=== PATIENT | male | born 1990 | race Caucasian/White ===

== ENCOUNTER 2016-09-13 22:10 | Emergency (ER) | payer OTHER ==
[~2016-09-13] VITALS: Ht 188 cm; Wt 101.6 kg
[2016-09-13 22:15] VITALS: TEMP 36.9; Ht 188 cm; Wt 101.6 kg
[2016-09-13] MEDS ORDERED: LIDOCAINE/EPINEPH/TETRACAINE 1 EA SYR EXT STA (22:33)
[2016-09-13] MEDS ORDERED: ASPI81TA28 PO (22:36)
[2016-09-14 00:12] VITALS: BP 131/81; PULSE 78; O2SAT 96
--- NOTE | 2016-09-14 02:29 | EMERGENCY ROOM VISIT NOTE ---
History First contact with patient: 22:29 Chief Complaint: LACERATION/CUT (NON-SUTURE) Stated Complaint: LACERATION ON FACE Nursing Triage Summary: laceration to the left cheek after fall on the ice History of Present Illness The patient is a 25 year old male who presents to the Emergency Room with complaints of fall outside on the ice with laceration to left cheek. No alcohol or drugs tonight. Patient denies loss of consciousness or headache. Patient denies loss of conscious, facial pain, dental pain, neck pain, vision problems, chest pain, dyspnea, abdominal pain, back pain or any other medical complaints. Tetanus is current. Review of Systems See HPI for pertinent positives & negatives. A total of 10 systems reviewed and were otherwise negative. Past Medical/Surgical History Medical Problems: (1) Alcohol intoxication (2) Closed head injury Family History Patient reports no known family medical history. Social History Smoking Status: Never Smoker Alcohol Use: occasionally Housing Status: lives with family Occupation Status: employed Current/Historical Medications Scheduled Aspirin (Aspirin Ec), 81 MG PO DAILY Allergies Coded Allergies: No Known Allergies (Verified , `, 02/23/14) Physical Exam Vital Signs Date Time Temp Pulse Resp B/P Pulse Ox O2 Delivery O2 Flow Rate FiO2 09/14/16 00:12 78 18 131/81 96 09/13/16 23:01 66 18 150/79 96 Room Air 09/13/16 22:15 36.9 68 20 159/82 96 Room Air Pain Rating (0-10): 3.0 Physical Exam VITALS: Vitals are noted on the nurse's note and reviewed by myself. Vital signs stable. GENERAL: Pleasant male, in no acute distress, nondiaphoretic, well-developed well-nourished. SKIN: 3 cm left cheek laceration The rest of the skin was without rashes, erythema, edema, or bruising. There is no tenting of the skin. Capillary reflex less than 2 seconds. HEAD: Normocephalic Face: NTTP EARS: External auditory canals clear, tympanic membranes pearly morley without erythema or effusion bilaterally. EYES: Pupils equal round and reactive to light and accommodation. Conjunctivae without injection, sclerae without icterus. Extraocular movements intact. NOSE: Patent, turbinates without inflammation or discharge. No sinus tenderness. MOUTH: Mucous membranes moist. Tonsils are not enlarged. Pharynx without erythema or exudate. Uvula midline. Airway patent. Tongue does not deviate. NECK: Supple without nuchal rigidity. No lymphadenopathy. No thyromegaly. Cervical spine is nontender. No JVD. HEART: Regular rate and rhythm without murmurs gallops or rubs. LUNGS: Clear to auscultation bilaterally without wheezes, rales or rhonchi. No dullness to percussion. No retractions or accessory muscle use. ABDOMEN: Positive bowel sounds x 4. Normal tympanic percussion. Soft, nontender, without masses or organomegaly. Jhaveri sign negative. No guarding or rebound tenderness. MUSCULOSKELETAL: No muscle atrophy, erythema, or edema noted. NEURO: Patient was alert and oriented to person place and time. Normal sensation to light and sharp touch. No focal neurological deficits. Cranial nerves II through XII grossly intact. No pronator drift. Cerebellar exam intact. Medical Decision & Procedures Medications Administered Medications (Trade) Dose Ordered Sig/Yasmine Route Start Time Stop Time Status Last Admin Dose Admin Tetracaine/ Epinephrine/ Lidocaine (L.e.t. Gel 4%/ 1:100/0.5%) 1 ea NOW STAT EXT 09/13/16 22:33 09/13/16 22:35 DC 09/13/16 22:58 1 EA Procedure Location: iface Total length: 3cm Complexity: simple Verbal consent was obtained after the risks and benefits were explained, including but not limited to bleeding, scarring, infection, pain, and bone/joint /nerve damage. At this time, the risks of the procedure are less than the risks of NOT performing the procedure. A time out was taken and the correct patient and site identified. The skin was prepped with betadine. The target area was anesthetized with LET. Copious irrigation was performed using NSS. The skin was re-prepped with betadine and a sterile field set. The wound was explored for foreign bodies and none found. Examination revealed no injury to deep structures such as tendons, bone, or significant blood vessels. Debridement was not performed. The wound edges were approximated using 6, 6-0 simple interrupted nylon sutures. Hemostasis and excellent approximation was achieved. Antibacterial ointment and a sterile dressing applied. Detailed wound care instructions and signs and symptoms of infection reviewed with the pt. No complications and the patient tolerated the procedure well. ED Course Prior records/ancillary studies reviewed. Triage Nursing notes reviewed. Additional history obtained from friend. The patient's history was concerning for traumatic head injury Differential diagnosis: Etiologies such as concussion, contusion, fracture, subdural hematoma, epidural hematoma, intraparenchymal hemorrhage, as well as other traumatic pathologies were entertained. Physical examination findings: As above. ER treatment provided: Laceration repaired as above On reassessment the patient felt better. Diagnostics interpreted by me: It appears the patient has a facial laceration with mild head injury. I discussed the risks and the benefits of CT scanning. Clinically the patient is doing well and does not appear to have a significant underlying injury. The pt felt comfortable with conservative observation with the understanding if the clinical picture change that imaging may be necessary at a later time. I gave my usual and customary discussion regarding this issue. Patient was neurovascularly and neurologically intact. He was well-appearing. No alcohol or drugs on board. He was counseled on head injury signs and symptoms and laceration care. He was advised to return to the ER immediately for headache, fevers, confusion, worsening signs or symptoms or as needed. By the evaluation outlined above emergent etiologies such as fracture, subdural hematoma, epidural hematoma, intraparenchymal hemorrhage, as well as others were deemed relatively unlikely. The pt informed about the findings as listed above. All questions were answered and pleased with the treatment. Return instructions were outlined and the patient was discharged in stable condition. Referral: The patient was referred back to their primary care physician for follow-up in 2 to 3 days for a recheck of the current condition. Medical Decision as above Impression Primary Impression: Facial laceration Additional Impressions: Closed head injury Fall Departure Information Dispostion Home / Self-Care Condition FAIR Forms WORK / SCHOOL INSTRUCTIONS, HOME CARE DOCUMENTATION FORM, IMPORTANT VISIT INFORMATION Patient Instructions A Signature Page, My [facility], ED Head Injury Closed, ED Laceration All Additional Instructions Keep wound clean and dry. Do not allow any crusting or dried blood to accumulate on sutures. If this occurs, use a 1:1 solution of hydrogen peroxide/ water on a Q-tip to clean the wound. Use an antibiotic ointment for 3-4 days, then let wound dry. Suture removal in 5-7 days. Return sooner for any signs of infection (increasing redness, swelling, drainage). Ice and elevate for swelling and pain. Keep covered when in sun until sutures removed then SPF 50 or higher for one year. Vitamin E oil if desired two weeks after suture removal for reduction of scar. Read head injury handout and return for any symptoms. Tylenol 1000 mg as needed for pain (Maximum 3000 mg Tylenol in 24 hr period). Avoid alcohol and contact sports/activities for one week and follow up with family doctor prior to returning to these activities if still symptomatic. Ice and elevate head. Return to ER sooner for headache, fevers, confusion, lethargy, worsening signs or symptoms or as needed. Problem Qualifiers Additional Impressions: Closed head injury Encounter type: initial encounter Qualified Codes: S09.90XA - Unspecified injury of head, initial encounter
== END 2016-09-14 00:12 | disposition home or self-care (01) ==
LOC: C.EDB 22:11
DX: S01.402A Unspecified open wound of left cheek and temporomandibular area, initial encounter (principal); S09.90XA Unspecified injury of head, initial encounter; Z79.82 Long term (current) use of aspirin; W00.0XXA Fall on same level due to ice and snow, initial encounter; Y93.89 Activity, other specified; Y92.89 Other specified places as the place of occurrence of the external cause; Y99.8 Other external cause status

== ENCOUNTER 2017-05-21 03:35 | Emergency (ER) | payer OTHER ==
[~2017-05-21] VITALS: Ht 188 cm; Wt 103.8 kg
[~2017-05-21 03:35] MED LIST: ASPI81TA28 PO
[2017-05-21 03:44] VITALS: TEMP 36.6; Ht 188 cm; Wt 103.8 kg
--- NOTE | 2017-05-21 03:48 | EMERGENCY ROOM VISIT NOTE ---
History Report prepared by Chon: Rick Ashley Under the Supervision of: Dr. Fam Boykin M.D. First contact with patient: 03:36 Chief Complaint: ALCOHOL OVERDOSE Stated Complaint: ALCOHOL History of Present Illness The patient is a 26 year old male who presents to the Emergency Room via EMS for a persistent alcohol intoxication that started prior to arrival. Per EMS, the patient was found sleeping on a bench at [employer], and was initially combative but is now cooperative. The patient admits to alcohol use. He also admits to periodic marijuana use, but not tonight however. He has a history of a traumatic brain injury, but denies any recent injuries. He denies any vomiting. History limited secondary to patient's intoxication. Source of History: patient, EMS History Limited By: intoxication Onset: Prior to arrival Position: other (global - alcohol intoxication) Quality: other (found sleeping on bench at [employer]) Timing: other (persistent) Associated Symptoms: No vomiting Note: Associated symptoms: Initially combative. Review of Systems Review of systems is unobtainable due to alcohol intoxication. Past Medical & Surgical Medical Problems: (1) Alcohol intoxication (2) Closed head injury Family History Patient reports no known family medical history. Social History Smoking Status: Never Smoker Alcohol Use: occasionally Housing Status: lives with family Occupation Status: employed Current/Historical Medications No Active Prescriptions or Reported Meds Allergies Coded Allergies: No Known Allergies (Verified , `, 02/23/14) Physical Exam Vital Signs Date Time Temp Pulse Resp B/P (MAP) Pulse Ox O2 Delivery O2 Flow Rate FiO2 05/21/17 05:00 71 16 159/61 99 Room Air 05/21/17 04:10 91 05/21/17 04:07 81 20 146/56 96 Room Air 05/21/17 03:44 36.6 94 20 163/79 99 Room Air Physical Exam GENERAL: Patient is moderately intoxicated with slurred speech. Smells of alcohol. Well appearing and in no acute distress. HEAD: No evidence of Trauma. AT/NC EYES: Injected conjunctiva. Normal EOM. Pupils equal/reactive. ENT: Mucous membranes moist, no nasal congestion, . NECK: No step-offs, no adenopathy, no meningismus, trachea is midline. LUNGS: No dyspnea. Clear to auscultation and equal bilaterally. No wheeze, no rhonchi. HEART: Regular rate and rhythm. No murmurs, rubs, gallops appreciated. ABDOMEN: Soft, nontender, bowel sounds positive, no masses appreciated, no peritonitis. BACK: No midline tenderness, no CVA tenderness EXTREMITIES: Normal motion all extremities, no cyanosis, no edema. NEUROLOGIC: Intoxicated. Alert, oriented. No acute motor or sensory deficits, no focal weakness, cranial nerves grossly intact. SKIN: No rash, no jaundice, no diaphoresis. Medical Decision & Procedures Laboratory Results 05/21/17 03:59 Test 05/21/17 03:59 Anion Gap 2.0 mmol/L (3-11) Est Creatinine Clear Calc Drug Dose 133.1 ml/min Estimated GFR () 108.3 Estimated GFR (Non- 93.5 BUN/Creatinine Ratio 14.0 (10-20) Calcium Level 8.5 mg/dl (8.5-10.1) Ethyl Alcohol mg/dL 113.0 mg/dl (0-3) Laboratory results as reviewed by me. ED Course 0337: The patient was evaluated in room B12A. A limited history and physical exam was performed. 0459: I reevaluated the patient and he is awake, alert, and oriented. He is going home with a friend. The patient verbally expressed understanding and agreement of the treatment plan. The patient will be discharged. Medical Decision Differential: Alcohol Intoxication, Drug Intoxication, Electrolyte Abnormality, Trauma, Intracranial Event, Toxicological, Excited Delirium, Serotonin Syndrome , amongst other pathologies entertained. 26 yr old intoxicated male brought in by EMS after being found intoxicated at local [employer]. Patient with no evidence nor history for trauma. Protecting airway and breathing comfortably throughout ED stay. EtOH positive. Monitored and discharged when awake, alert, oriented and denies any complaints. Medication Reconcilliation Current Medication List: was personally reviewed by me Blood Pressure Screening Patient's blood pressure: Elevated blood pressure Blood pressure disposition: Elevated BP felt to be situational Impression Primary Impression: Alcohol use with intoxication Scribe Attestation The scribe's documentation has been prepared under my direction and personally reviewed by me in its entirety. I confirm that the note above accurately reflects all work, treatment, procedures, and medical decision making performed by me. Departure Information Dispostion Home / Self-Care Prescriptions No Active Prescriptions or Reported Meds Referrals Sudhakar Ortiz M.D. (PCP) Patient Instructions Alcohol Intoxication - [facility], My [facility]
[2017-05-21 04:35] LABS: CALCIUM 8.5 mg/dl (8.5-10.1); CREATININE 1.1 mg/dl (0.60-1.40); POTASSIUM 4.1 mmol/L (3.5-5.1)
[2017-05-21 05:00] VITALS: BP 159/61; PULSE 71; O2SAT 99
== END 2017-05-21 05:29 | disposition home or self-care (01) ==
LOC: EDBD 03:35 → C.EDB 03:35
DX: F10.129 Alcohol abuse with intoxication, unspecified (principal)

== ENCOUNTER 2025-08-14 18:51 | Inpatient (IN) ==
[2025-08-14 19:20] LABS: Hematocrit (blood only) 43.3 % (42.0-52.0); Hemoglobin 15.0 g/dL (14.0-18.0); Immature Granulocytes # (auto) 0.04 K/uL (0.01-0.20); Immature Granulocytes % (auto) 0.3 %; Mean Corpuscular Hemoglobin 30.0 pg (25.0-34.0); Mean Corpuscular Volume 86.6 fL (80.0-100.0); Platelet Count 207 K/uL (130-400); RDW Standard Deviation 39.3 fL (36.4-46.3); Red Blood Count 5.00 M/uL (4.70-6.10); White Blood Count 14.01 K/ul (4.8-10.8)
[2025-08-14] MEDS: KETOROLAC TROMETHAMINE 15 MG/ML VIAL IV ONE (19:31)
[2025-08-14 19:43] LABS: Alanine Aminotransferase 14.0 U/L (7-52); Albumin Globulin Ratio 1.0 (0.9-2); Albumin Level 3.8 gm/dl (3.4-5.0); Alkaline Phosphatase 55.0 U/L (34-104); Anion Gap 6.0 (3-11); Bilirubin,Total 0.7 mg/dl (0.2-1.0); Blood Urea Nitrogen 20.0 mg/dl (6-23); Calcium 9.2 mg/dl (8.6-10.3); Carbon Dioxide 29.0 mmol/L (21-32); Chloride 103.0 mmol/L (98-107); Creatinine Clr Calc Pharmacy 116.0 ml/min; Globulin 3.7 gm/dl (2.5-4.0); Glucose 97.0 mg/dl (70-99(Fasting)); Potassium 3.8 mmol/L (3.5-5.1); Sodium 138.0 mmol/L (136-145); Total Protein 7.5 gm/dl (6.0-8.3)
--- NOTE | 2025-08-14 19:44 | XRay Report ---
Chest radiograph, one view History: Chest pain Comparison: 08/12/2025 Findings: Single AP view of the chest performed. No pneumothorax. Enlargement of the cardiac silhouette, likely related to previously seen pericardial effusion. Small left pleural effusion. Median sternotomy wires. Normal pulmonary vascularity. No evidence for lymphadenopathy. No visualized bony or soft tissue abnormality. Impression: Continue small left pleural effusion Electronically signed by Mo Street 08-14-2025 7:44 PM
[2025-08-14 19:49] LABS: INR 1.1 (0.9-1.1); Partial Thromboplastin Time 27 Seconds (21-31); Prothrombin Time 11.1 Seconds (9.0-12.0)
--- NOTE | 2025-08-14 19:57 | Emergency Department Note ---
History of Present Illness General Chief complaint: Chest Pain Stated complaint: CHEST PAIN Time Seen by Provider: 08/14/25 19:14 Source: patient Mode of arrival: ambulatory Limitations: no limitations History of Present Illness Maximum Pain Intensity: 7 Patient is a 34-year-old male with history of prior pericarditis and recently diagnosed pericardial effusion who presents for worsening pleuritic chest pain. Worse when lying down. Describes sharp pain to the midsternal region that comes in waves. He was seen 2 days prior and diagnosed with a small to moderate left pleural effusion on CT. He was discharged after a dose of IV Solu-Medrol and Toradol. He says his pain has not improved since then. 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 Patient denies any lightheadedness, dizziness, palpitations, nausea, vomiting, lower extremity swelling or pain. Home Medications Medication Instructions Recorded Confirmed Type aspirin 81 mg chewable tablet 81 mg PO QAM 10/12/23 08/12/25 History losartan 25 mg tablet 25 mg PO QAM 05/28/25 08/12/25 History montelukast 10 mg tablet 10 mg PO QAM 05/28/25 08/12/25 History fexofenadine 60 mg tablet 60 mg PO QAM 07/03/25 08/12/25 History vit C-vit E-Se-ginkgo biloba 60 1 tab PO BID 07/03/25 08/12/25 History mg-30 unit-70 mcg-40 mg tablet colchicine 0.6 mg tablet 0.6 mg PO BID #60 tabs 07/04/25 08/12/25 Rx propranolol 10 mg tablet 10 mg PO BID #60 tabs 07/04/25 08/12/25 Rx pantoprazole 40 mg tablet,delayed 40 mg PO QAM PRN Other 08/12/25 08/12/25 History release Allergies Allergy/AdvReac Type Severity Reaction Status Date / Time No Known Allergies Allergy Unknown ` Verified 08/12/25 18:21 Past Med/Surg History Problem List (Updated 08/12/25 @ 19:55 by Luis Manuel Medrano MD) Pericarditis (Acute) Acute pericardial effusion (Acute) Pericardial effusion (Acute) Pericarditis (Acute) Chest pain (Acute) Syncope (Acute) Pulmonary HTN Severe mitral regurgitation Mitral valve posterior leaflet prolapse Severe mitral valve regurgitation Medical History Closed traumatic brain injury Surgical History History of inferior vena caval filter placement Hx of tonsillectomy Family History Mother Cancer Father Hemochromatosis Social History Smoking Status: Never smoker Tobacco Type: E-cigarettes / Vaping Hx Alcohol Use: No Hx Substance Use: No Preferred Language: Italian Communication Ability: Effective University Internship Required: No Beliefs That Will Affect Care: None marital status: Single Current Living Situation: Alone current occupational status: employed Feels Safe at Home: Yes Assistive Devices: None Review of Systems Review of systems negative outside of positive findings mentioned in HPI. Physical Exam Vital Signs Vital Signs - 24 hr 08/14/25 18:56 08/14/25 19:23 08/14/25 20:02 Temperature 36.6 C Temperature Source Temporal Artery Scan Pulse Rate 91 H 86 Pulse Rate [Apical] 83 Pulse Rhythm [Apical] Regular Pulse Strength [Apical] Normal Respiratory Rate 16 16 Respiratory Effort / Characteristics Non-Labored Spontaneous Non-Labored Spontaneous Respiratory Depth Normal Normal Respiratory Pattern Regular Regular Blood Pressure 118/76 Blood Pressure [Left Arm] 112/61 Blood Pressure Mean 90 Blood Pressure Mean [Left Arm] 78 Pulse Oximetry 94 95 Oxygen Delivery Method Room Air Room Air Sepsis Recent Fever Within 48 Hours No Sepsis New/Unexplained Change in Mental Status No Sepsis Action Taken by Nursing No Action Required See below Constitutional WD/WN, vitals as above Respiratory normal respiratory effort, lungs clear to auscultation Cardiovascular RRR, no murmur, no edema Extremities: no calf tenderness, no pedal edema and no edema Course Administered Medications Discontinued Medications Ketorolac Tromethamine (Ketorolac Tromethamine 15 Mg/Ml Vial) 15 mg IV NOW ONE Stop: 08/14/25 19:24 Last Admin: 08/14/25 19:31 Dose: 15 mg Documented By: abl Methylprednisolone (Methylprednisolone 125 Mg/2 Ml Vial) 125 mg IV NOW STA Stop: 08/14/25 19:24 Last Admin: 08/14/25 19:31 Dose: 125 mg Documented By: abl Medical Decision Making Laboratory Data 08/14/25 19:05 08/14/25 19:05 Lab Results 08/14/25 Range/Units 19:05 WBC 14.01 H (4.8-10.8) K/ul RBC 5.00 (4.70-6.10) M/uL Hgb 15.0 (14.0-18.0) g/dL Hct 43.3 (42.0-52.0) % MCV 86.6 (80.0-100.0) fL MCH 30.0 (25.0-34.0) pg MCHC 34.6 (32.0-36.0) g/dL RDW Std Deviation 39.3 (36.4-46.3) fL RDW Coeff of Jovan 12.4 (11.5-14.5) % Plt Count 207 (130-400) K/uL MPV 11.2 (9.4-12.4) fL Immature Gran % (Auto) 0.3 % Neut % (Auto) 72.8 % Lymph % (Auto) 11.8 % [place] % (Auto) 13.3 % Eos % (Auto) 1.3 % Baso % (Auto) 0.5 % Neut # (Auto) 10.20 H (1.40-6.50) K/uL Lymph # (Auto) 1.65 (1.20-3.40) K/uL [place] # (Auto) 1.87 H (0.11-0.59) K/uL Eos # (Auto) 0.18 (0.00-0.50) K/uL Baso # (Auto) 0.07 (0.00-0.20) K/uL Immature Gran # (Auto) 0.04 (0.01-0.20) K/uL ESR 20 H (0-15) mm/hr PT 11.1 (9.0-12.0) Seconds INR 1.1 (0.9-1.1) APTT 27 (21-31) Seconds PTT Ratio 1.0 Sodium 138 (136-145) mmol/L Potassium 3.8 (3.5-5.1) mmol/L Chloride 103 (98-107) mmol/L Carbon Dioxide 29 (21-32) mmol/L Anion Gap 6 (3-11) BUN 20 (6-23) mg/dl Creatinine 1.26 (0.6-1.4) mg/dl Est Cr Clr Drug Dosing 116.0 ml/min eGFR 77.72 BUN/Creatinine Ratio 15.9 (10-20) Glucose 97 (70-99(Fasting)) mg/dl Calcium 9.2 (8.6-10.3) mg/dl Total Bilirubin 0.7 (0.2-1.0) mg/dl AST 15 (13-39) U/L ALT 14 (7-52) U/L Alkaline Phosphatase 55 (34-104) U/L Troponin I High Sens 496.2 H* (0-20) pg/ml Total Protein 7.5 (6.0-8.3) gm/dl Albumin 3.8 (3.4-5.0) gm/dl Globulin 3.7 (2.5-4.0) gm/dl Albumin/Globulin Ratio 1.0 (0.9-2) Imaging Data Radiologist's Impression: Chest X-Ray 08/14/25 19:00 Chest radiograph, one view History: Chest pain Comparison: 08/12/2025 Findings: Single AP view of the chest performed. No pneumothorax. Enlargement of the cardiac silhouette, likely related to previously seen pericardial effusion. Small left pleural effusion. Median sternotomy wires. Normal pulmonary vascularity. No evidence for lymphadenopathy. No visualized bony or soft tissue abnormality. Impression: Continue small left pleural effusion Electronically signed by Mo Street 08-14-2025 7:44 PM ECG Data Attestation: I personally reviewed and interpreted this ECG as follows: Indication: + chest pain Rate (beats per minute): 93 Rhythm: + normal sinus ECG Intervals/blocks: + Incomplete right bundle branch block, + Normal QT and + Normal MN ECG [place]: + Normal ECG ST segments: + ST elevation (inferolateral ) Comparison ECG Date: from (07/02/2025) Additional Comments: Diffuse ST elevations with MN depression with Spotik sign consistent with pericarditis Discharge Plan Visit Data Chief Complaint: Chest Pain Stated Complaint: CHEST PAIN ED Provider: Berny Hess Forms Stand Alone Forms: [facility] ETC Education Prescriptions Prescriptions: No Action pantoprazole 40 mg tablet,delayed release (DR/EC) 40 mg PO QAM PRN (Reason: Other) aspirin 81 mg tablet,chewable 81 mg PO QAM montelukast 10 mg tablet 10 mg PO QAM losartan 25 mg tablet 25 mg PO QAM fexofenadine 60 mg tablet 60 mg PO QAM vit C-vit E-Se-ginkgo biloba 60-30-70-40 [id number]-crha-[id number]-mg Tablet 1 tab PO BID Rx Instructions: 7am 7pm colchicine 0.6 mg tablet 0.6 mg PO BID Qty: 60 2RF propranolol 10 mg Tablet 10 mg PO BID Qty: 60 2RF Referrals Referrals: Sudhakar Ortiz MD [Primary Care Provider] -
--- NOTE | 2025-08-14 21:54 | History & Physical Report ---
Date of Service August 14, 2025 Assessment & Plan (1) Pericarditis: Plan: Assessment and plan below following discussion of case with ED provider and reviewing patient history/pertinent normal/abnormal diagnostic test results. 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 Admit to PCU Analgesia Cardiology consult re: recurrent pericardial effusion (ED provider already in touch with Dr. Graves who recommends stat TTE.) Dr. Graves recommends continuing ibuprofen 800 mg 3 times daily, prednisone 40 mg daily along with patient's doxycycline course and colchicine Rx. DVT prophylaxis. Lovenox subcu Full code Patient mother requesting updates providers. Ms. Isabel Sosa, contact #[phone]. Text document was generated using [employer] voice recognition software. It may contain grammatical or spelling errors. Kindly contact undersigned for clarification of any documentation item in question. History of Present Illness Chief Complaint: Chest pain Primary Care Provider: Sudhakar Ortiz MD History obtained from patient and records. Medical history significant for nonischemic cardiomyopathy (EF 55-59%, TTE 2024), severe MR/mitral valve prolapse status post surgery (2022), mild TR, pericardial effusion, COPD, history of traumatic brain injury, neurocognitive disorder, mood disorder, Lyme disease status post Rx, past tobacco/alcohol abuse. 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 Patient discharged on ibuprofen tapering course, colchicine, and doxycycline. Outpatient TTE last August 04 was negative for residual pericardial fluid. Last week, patient had recurrent pleuritic left-sided chest pain reminiscent of pericarditis attack. No cough or SOB. Patient still on colchicine Rx. Patient consulted ER 2 days ago for evaluation. CT chest showed increased pericardial fluid Patient evaluated by [facility] nailer machine at the ER. Toradol and Solu-Medrol administered at the ER. Patient discharged on 1 week course of doxycycline and ibuprofen taper. Patient instructed to continue colchicine course. Additional prescription given for Protonix daily. Limited outpatient echo contemplated by end of the week/next week as per Cardiology note. Patient returned to ER today because of persistent left-sided chest pain. IV Toradol and Solu-Medrol administered at the ER. Medical History as above Surgical History : IVC filter placement, mitral valve surgery, tonsillectomy/adenoidectomy, PEG tube placement Family History : Migraine Personal/Social history : Past tobacco/alcohol abuse, delivery work Allergies Allergy/AdvReac Type Severity Reaction Status Date / Time No Known Allergies Allergy Unknown ` Verified 08/14/25 20:59 Home Medications Medication Instructions Recorded Confirmed Type aspirin 81 mg chewable tablet 81 mg PO QAM 10/12/23 08/14/25 History losartan 25 mg tablet 25 mg PO QAM 05/28/25 08/14/25 History montelukast 10 mg tablet 10 mg PO QAM 05/28/25 08/14/25 History fexofenadine 60 mg tablet 60 mg PO QAM 07/03/25 08/14/25 History colchicine 0.6 mg tablet 0.6 mg PO BID #60 tabs 07/04/25 08/14/25 Rx propranolol 10 mg tablet 10 mg PO BID #60 tabs 07/04/25 08/14/25 Rx pantoprazole 40 mg tablet,delayed 40 mg PO QAM HEARTBURN/INDIGESTION 08/12/25 08/14/25 History release Fresh Cap 1 tab PO DAILY 08/14/25 08/14/25 History doxycycline hyclate 100 mg capsule 100 mg PO BID 08/14/25 08/14/25 History ibuprofen 200 mg tablet 0 mg PO TID 08/14/25 08/14/25 History Past Med/Surg History Problem List (Updated 08/12/25 @ 19:55 by Luis Manuel Medrano MD) Pericarditis (Acute) Acute pericardial effusion (Acute) Pericardial effusion (Acute) Pericarditis (Acute) Chest pain (Acute) Syncope (Acute) Pulmonary HTN Severe mitral regurgitation Mitral valve posterior leaflet prolapse Severe mitral valve regurgitation Medical History Closed traumatic brain injury Surgical History History of inferior vena caval filter placement Hx of tonsillectomy Family History Mother Cancer Father Hemochromatosis Social History Smoking Status: Never smoker Tobacco Type: E-cigarettes / Vaping Hx Alcohol Use: No Hx Substance Use: No Preferred Language: Brazilian Communication Ability: Effective Fire Technology Instructor Required: No Beliefs That Will Affect Care: None marital status: Single Current Living Situation: Alone current occupational status: employed Other Information That Helps Us Care for You: No Feels Safe at Home: Yes Safety Concerns: Feels Safe At This Time Assistive Devices: Contacts Review of Systems Review of Systems: As per HPI, all other systems reviewed and negative Physical Exam Physical Exam: GENERAL: Comfortable, obese, pleasant, no respiratory distress SKIN: Normal color, warm HEENT: [place] palpebral conjunctivae, no ptosis, moist buccal mucosa NECK : Supple, no tenderness CHEST : CTA, left chest wall tenderness HEART : RRR, no obvious murmurs ABDOMEN: Some distention, nontender EXTREMITIES : No LE swelling/tenderness, palpable pulses, no other conspicuous deformities noted NEUROLOGIC : Coherent, no facial asymmetry, no other gross focality Results & Data Results & Data Vital Signs (Past 12 Hours) Vital Signs Temp Pulse Pulse Resp BP BP Pulse Ox 08/14/25 20:02 83 16 112/61 95 08/14/25 19:23 86 08/14/25 18:56 36.6 C 91 H 16 118/76 94 O2 Del Method 08/14/25 20:02 Room Air 08/14/25 19:23 08/14/25 18:56 Room Air Laboratory Results Laboratory Results WBC 14.01 K/ul (4.8-10.8) H 08/14/25 19:05 RBC 5.00 M/uL (4.70-6.10) 08/14/25 19:05 Hgb 15.0 g/dL (14.0-18.0) 08/14/25 19:05 Hct 43.3 % (42.0-52.0) 08/14/25 19:05 MCV 86.6 fL (80.0-100.0) 08/14/25 19:05 MCH 30.0 pg (25.0-34.0) 08/14/25 19:05 MCHC 34.6 g/dL (32.0-36.0) 08/14/25 19:05 RDW Std Deviation 39.3 fL (36.4-46.3) 08/14/25 19:05 RDW Coeff of Jovan 12.4 % (11.5-14.5) 08/14/25 19:05 Plt Count 207 K/uL (130-400) 08/14/25 19:05 MPV 11.2 fL (9.4-12.4) 08/14/25 19:05 Immature Gran % (Auto) 0.3 % 08/14/25 19:05 Neut % (Auto) 72.8 % 08/14/25 19:05 Lymph % (Auto) 11.8 % 08/14/25 19:05 Person % (Auto) 13.3 % 08/14/25 19:05 Eos % (Auto) 1.3 % 08/14/25 19:05 Baso % (Auto) 0.5 % 08/14/25 19:05 Neut # (Auto) 10.20 K/uL (1.40-6.50) H 08/14/25 19:05 Lymph # (Auto) 1.65 K/uL (1.20-3.40) 08/14/25 19:05 Person # (Auto) 1.87 K/uL (0.11-0.59) H 08/14/25 19:05 Eos # (Auto) 0.18 K/uL (0.00-0.50) 08/14/25 19:05 Baso # (Auto) 0.07 K/uL (0.00-0.20) 08/14/25 19:05 Immature Gran # (Auto) 0.04 K/uL (0.01-0.20) 08/14/25 19:05 ESR 20 mm/hr (0-15) H 08/14/25 19:05 PT 11.1 Seconds (9.0-12.0) 08/14/25 19:05 INR 1.1 (0.9-1.1) 08/14/25 19:05 APTT 27 Seconds (21-31) 08/14/25 19:05 PTT Ratio 1.0 08/14/25 19:05 Sodium 138 mmol/L (136-145) 08/14/25 19:05 Potassium 3.8 mmol/L (3.5-5.1) 08/14/25 19:05 Chloride 103 mmol/L (98-107) 08/14/25 19:05 Carbon Dioxide 29 mmol/L (21-32) 08/14/25 19:05 Anion Gap 6 (3-11) 08/14/25 19:05 BUN 20 mg/dl (6-23) 08/14/25 19:05 Creatinine 1.26 mg/dl (0.6-1.4) 08/14/25 19:05 Est Cr Clr Drug Dosing 116.0 ml/min 08/14/25 19:05 eGFR 77.72 08/14/25 19:05 BUN/Creatinine Ratio 15.9 (10-20) 08/14/25 19:05 Glucose 97 mg/dl (70-99(Fasting)) 08/14/25 19:05 Calcium 9.2 mg/dl (8.6-10.3) 08/14/25 19:05 Total Bilirubin 0.7 mg/dl (0.2-1.0) 08/14/25 19:05 AST 15 U/L (13-39) 08/14/25 19:05 ALT 14 U/L (7-52) 08/14/25 19:05 Alkaline Phosphatase 55 U/L (34-104) 08/14/25 19:05 Troponin I High Sens 355.8 pg/ml (0-20) H* D 08/14/25 20:48 Total Protein 7.5 gm/dl (6.0-8.3) 08/14/25 19:05 Albumin 3.8 gm/dl (3.4-5.0) 08/14/25 19:05 Globulin 3.7 gm/dl (2.5-4.0) 08/14/25 19:05 Albumin/Globulin Ratio 1.0 (0.9-2) 08/14/25 19:05 Impressions Chest X-Ray 08/14/25 19:00 Chest radiograph, one view History: Chest pain Comparison: 08/12/2025 Findings: Single AP view of the chest performed. No pneumothorax. Enlargement of the cardiac silhouette, likely related to previously seen pericardial effusion. Small left pleural effusion. Median sternotomy wires. Normal pulmonary vascularity. No evidence for lymphadenopathy. No visualized bony or soft tissue abnormality. Impression: Continue small left pleural effusion Electronically signed by Mo Street 08-14-2025 7:44 PM Diagnostic Findings EKG as per my interpretation :Rate 95, NSR, normal axis, VA depression inferior leads, T wave inversion anteroseptal leads (1) Pericarditis Chronicity: chronic Pericarditis type: associated with other disease
[2025-08-14] MEDS ORDERED: ACETAMINOPHEN 325 MG TAB PO PRN (22:46)
[2025-08-14] MEDS ORDERED: PROMETHAZINE 6.25 MG/50.25 ML BAG IV PRN (22:48)
[2025-08-14] MEDS ORDERED: LORazepam 0.5 MG TAB PO PRN (22:48)
[2025-08-14] MEDS ORDERED: PROMETHAZINE 12.5 MG/50.5 ML BAG IV PRN (22:49)
[2025-08-14] MEDS: SODIUM CHLORIDE 0.9% 1,000 ML IV STA (23:29)
[2025-08-15] MEDS: MELATONIN 3 MG TAB PO PRN (00:16)
[2025-08-15] MEDS ORDERED: KETOROLAC TROMETHAMINE 15 MG/ML VIAL IV SCH (01:00)
[2025-08-15 06:20] LABS: Hematocrit (blood only) 41.9 % (42.0-52.0); Hemoglobin 14.6 g/dL (14.0-18.0); Mean Corpuscular Hemoglobin 30.2 pg (25.0-34.0); Mean Corpuscular Volume 86.7 fL (80.0-100.0); Platelet Count 201 K/uL (130-400); RDW Standard Deviation 39.3 fL (36.4-46.3); Red Blood Count 4.83 M/uL (4.70-6.10); White Blood Count 10.51 K/ul (4.8-10.8)
[2025-08-15 06:41] LABS: Immature Granulocytes # (auto) 0.04 K/uL (0.01-0.20); Immature Granulocytes % (auto) 0.4 %; RBC Morphology Unremarkable
[2025-08-15] MEDS: FEXOFENADINE 60 MG TAB PO SCH (08:42)
[2025-08-15] MEDS: DOXYCYCLINE HYCLATE 100 MG CAP PO SCH (08:42)
[2025-08-15] MEDS: COLCHICINE 0.6 MG TAB PO SCH (08:42)
[2025-08-15] MEDS: LOSARTAN POTASSIUM 25 MG TAB PO SCH (08:43)
[2025-08-15] MEDS: ASPIRIN 81 MG ECTAB PO SCH (08:45)
[2025-08-15] MEDS: MONTELUKAST SODIUM 10 MG TABLET PO SCH (08:45)
[2025-08-15] MEDS: IBUPROFEN 800 MG TAB PO SCH (08:45)
[2025-08-15] MEDS: predniSONE 20 MG TAB PO SCH (08:46)
[2025-08-15] MEDS: PROPRANOLOL HCL 10 MG TAB PO SCH (08:46)
[2025-08-15] MEDS: ENOXAPARIN INJ 40 MG/0.4 ML SYR SQ SCH (08:46)
--- NOTE | 2025-08-15 09:43 | XCELERA ---
[id number] \\[id number]}___[id number]
--- NOTE | 2025-08-15 09:45 | Cardiology Consultation ---
Date of Consultation August 15, 2025 Assessment & Plan (1) Myopericarditis: Repeat echocardiogram performed today revealed pericardial thickening without pericardial effusion. High sensitive troponin elevated on presentation last evening which was a new finding compared to earlier this week. This has since trended down. EKG repeated 08/15/2025 at 10:02 AM revealing normal sinus rhythm at [address] segment elevation in inferior and high lateral leads, slightly more prominent than that which was noted last night and development of T wave inversions in the precordial leads which I think is consistent with myopericarditis. No arrhythmias on telemetry. Patient states he feels great. Recommendations: If patient is still feeling well after lunch today, I think we could consider discharge. He has already been on colchicine 0.6 mg twice daily since his initial diagnosis in May and is therefore already been on 3 months of therapy. This will need to be prolonged for another 3 months of therapy. Continue ibuprofen 200 mg tablets to proceed with ongoing tapering dose as previously recommended. Today would be his third day of treatment with 800 mg 3 times per day. Proceed with 600 mg 3 times daily for 7 days, then 400 mg 3 times daily for 7 days, then 200 mg twice daily for 7 days and STOP . At this time addition of corticosteroids recommended. Discussed with patient. Given clinical presentation, benefits felt to outweigh risks.. Prednisone 40 mg x 7 days , then 20 mg x 7 days, then 10 mg x 14 days, then 5 mg daily x 7 days, then stop. Continue protonix for GI prophylaxis. Complete 7 days of doxycycline to complete 21 days (already has prescription ) as only completed 14 days at time of treatment in July. Has cardiology follow up already scheduled for next week. No vigorous exercise for 6 months. Will plan on outpatient cardiac MRI . I spent a total of 90 minutes on the date of service in preparation, delivery, and documentation of the care provided to this patient, excluding any time spent in the performance of separately billed services. Fabiola Graves DO History of Present Illness Attending Physician: Dada Calero MD History of Present Illness Abisai Roland is a 34-year-old male seen in cardiology consultation per the request of Dr. Elmore for the evaluation of chest discomfort. The patient's recent history dates back to May 2025 when he presented with pleuritic chest discomfort and there was concern of pericarditis. He presented again in June, after a syncopal episode that was felt to be due to him taking both propranolol and metoprolol succinate at the same time. He was also noted to have pleuritic chest discomfort. C-reactive protein level was minimally elevated at that time. An echocardiogram revealed a trace anterior and right lateral pericardial effusion. Lyme serology was performed with Western blot positive for both IgG and IgM bands. He was treated for pericarditis receiving a tapering dose of ibuprofen for 2 weeks which he completed on 07/15/2025. He completed 2 weeks of therapy with doxycycline 100 mg twice daily. A repeat transthoracic echocardiogram performed as an outpatient on 08/04/2025 revealed no residual pericardial effusion. The patient was feeling well from a chest pain standpoint until approximately 7 days ago. 4 days into his symptoms he presented to the emergency department where he was seen by the undersigned on 08/12/2025. A CT angiogram revealed a small to moderate circumferential pericardial effusion and a small to moderate left pleural effusion, both increased in size compared to previous CT study performed in June of this year. He received a dose of Solu-Medrol 40 mg and Toradol 15 mg in the emergency room that day, 08/12/2025 and was discharged on a repeat tapering dose of ibuprofen with initial plan to start 800 mg 3 times per day for the first 3 days. Colchicine 0.6 mg twice daily was continued which she has been on since the end of June without interruption. Last evening, Patient presented with recurrent chest discomfort especially when he tried to lie supine. He stated that when he was discharged from the emergency department on 08/13/2025 he felt well that night, but the next day and even worsening into yesterday he had recurrent symptoms. He had to prop himself up with pillows to sit upright in order to try to get rest because if he tried to lie supine he had severe chest discomfort. Last evening he received 15 mg of IV Toradol and 125 mg of IV Solu-Medrol with palliation of his discomfort. He states that he feels great at present. He is sitting supine and in no distress. Past Medical History: Traumatic brain injury suffered during a snowboarding accident at the age of 17 with chronic neurocognitive impairment, short-term memory impairment Severe mitral regurgitation with mitral valve prolapse, P2 flail, status post mitral valve repair 06/12/2023 (P2 triangular resection, sliding plasty, posterior chordal transposition, annuloplasty,38 mm posterior band). Mild left ventricular systolic dysfunction per echocardiogram 2022 and 2023 with LVEF historically in the rang of 45-55% Prophylactic inferior vena cava filter placed with unsuccessful removal in 2022 with resultant retained fragments Allergies Allergy/AdvReac Type Severity Reaction Status Date / Time No Known Allergies Allergy Unknown ` Verified 08/14/25 20:59 Home Medications Medication Instructions Recorded Confirmed Type aspirin 81 mg chewable tablet 81 mg PO QAM 10/12/23 08/14/25 History losartan 25 mg tablet 25 mg PO QAM 05/28/25 08/14/25 History montelukast 10 mg tablet 10 mg PO QAM 05/28/25 08/14/25 History fexofenadine 60 mg tablet 60 mg PO QAM 07/03/25 08/14/25 History colchicine 0.6 mg tablet 0.6 mg PO BID #60 tabs 07/04/25 08/14/25 Rx propranolol 10 mg tablet 10 mg PO BID #60 tabs 07/04/25 08/14/25 Rx pantoprazole 40 mg tablet,delayed 40 mg PO QAM HEARTBURN/INDIGESTION 08/12/25 08/14/25 History release Fresh Cap 1 tab PO DAILY 08/14/25 08/14/25 History doxycycline hyclate 100 mg capsule 100 mg PO BID 08/14/25 08/14/25 History ibuprofen 200 mg tablet 0 mg PO TID 08/14/25 08/14/25 History Patient History Medical History Closed traumatic brain injury Surgical History History of inferior vena caval filter placement Hx of tonsillectomy Family History Mother Cancer Father Hemochromatosis Social History Smoking Status: Never smoker Tobacco Type: E-cigarettes / Vaping Hx Alcohol Use: No Hx Substance Use: No Preferred Language: Sudanese Communication Ability: Effective Accounts Payable Technician Required: No Beliefs That Will Affect Care: None marital status: Single Current Living Situation: Alone current occupational status: employed Other Information That Helps Us Care for You: No Feels Safe at Home: Yes Safety Concerns: Feels Safe At This Time Assistive Devices: Contacts Review of Systems Review of Systems: All systems reviewed & are unremarkable except as noted in HPI & below Physical Exam Physical Exam: Temp Pulse Resp BP Pulse Ox O2 Del Method 36.5 C 86 18 141/70 H 98 Room Air 08/15/25 08:40 08/15/25 08:40 08/15/25 08:40 08/15/25 08:40 08/15/25 08:40 08/15/25 08:40 General: no acute distress and stated age Eyes: conjunctiva are pink and non-injected, sclera clear Neck: normal jugular venous pulse, no hepatojugular reflux Chest: normal shape and normal respiratory effort -well healed midline sternotomy incision Lungs: clear to auscultation and percussion Cardiac Exam: - regular heart sounds, no murmurs, rubs, or gallops, no jugular venous distention Abdomen: abdomen soft, non-tender, no abnormal masses and no hepatosplenomegaly Musculoskeletal: no gait disturbance, no weakness Extremities: no edema and no cyanosis Neuro:awake, conversant, follows commands, no focal motor deficits, Cognitive impairment consistent with history of traumatic brain injury Results & Data Laboratory Results Cardiac Enzymes 08/14/25 08/14/25 08/15/25 Range/Units 19:05 20:48 05:48 AST 15 (13-39) U/L Troponin I High Sens 496.2 H* 355.8 H* D 73.9 H* D (0-20) pg/ml Coagulation 08/14/25 Range/Units 19:05 PT 11.1 (9.0-12.0) Seconds APTT 27 (21-31) Seconds CBC 08/14/25 08/15/25 Range/Units 19:05 05:48 WBC 14.01 H 10.51 (4.8-10.8) K/ul RBC 5.00 4.83 (4.70-6.10) M/uL Hgb 15.0 14.6 (14.0-18.0) g/dL Hct 43.3 41.9 L (42.0-52.0) % Plt Count 207 201 (130-400) K/uL Neut # (Auto) 10.20 H 9.51 H (1.40-6.50) K/uL Lymph # (Auto) 1.65 0.69 L (1.20-3.40) K/uL [place] # (Auto) 1.87 H 0.26 (0.11-0.59) K/uL Eos # (Auto) 0.18 0.00 (0.00-0.50) K/uL Baso # (Auto) 0.07 0.01 (0.00-0.20) K/uL Comprehensive Metabolic Panel 08/14/25 08/15/25 Range/Units 19:05 05:48 Sodium 138 139 (136-145) mmol/L Potassium 3.8 4.3 (3.5-5.1) mmol/L Chloride 103 105 (98-107) mmol/L Carbon Dioxide 29 26 (21-32) mmol/L BUN 20 16 (6-23) mg/dl Creatinine 1.26 0.92 D (0.6-1.4) mg/dl Glucose 97 165 H (70-99(Fasting)) mg/dl Calcium 9.2 9.4 (8.6-10.3) mg/dl AST 15 (13-39) U/L ALT 14 (7-52) U/L Alkaline Phosphatase 55 (34-104) U/L Total Protein 7.5 (6.0-8.3) gm/dl Albumin 3.8 (3.4-5.0) gm/dl Intake and Output 08/14/25 08/15/25 08/15/25 22:59 06:59 14:59 Intake Total 600 / 600 705 / 705 Output Total 1200 / 1200 Balance -600 / -600 705 / 705 Intake: IV 705 / 705 Sodium Chloride 0.9% 1,000 ml @ 705 / 705 60 mls/hr IV .[id number] STA Rx#: [id number] Oral 600 / 600 Output: Urine 1200 / 1200 Other: Weight 123.7 kg 123.1 kg Weight Measurement Method Chair Scale Built in [facility] Diagnostic Findings EKG performed 08/14/2025 at 1905 and interpreted dependently revealed sinus rhythm at [address] segment elevation of 0.5 to 1 mms in the inferior lateral leads consistent with pericarditis which was new compared to 08/12/2025 Summary of transthoracic echocardiogram performed today 08/15/2025 and interpreted independently: There is normal left ventricular wall thickness. No regional wall motion abnormalities noted. Left ventricular systolic function is low normal. Left Ventricular Ejection Fraction = 50-55%. The right ventricle is normal in size and function. There is evidence of a previous mitral valve repair with annuloplasty ring. There is mild mitral regurgitation. There is mild tricuspid regurgitation. Doppler findings do not suggest pulmonary hypertension. There is mild thickening of the pericardium. There is no pericardial effusion. Findings are not suggestive of constrictive pericarditis. There is a moderate left pleural effusion. Compared to the previous study dated 07/03/2025 the trace anterior right lateral pericardial effusion is not appreciated on the present study. Pericardial thickening no noted. The left ventricular ejection fraction is relatively unchanged. Coding Level of Care Code 42420 IN/OBS CONSULT LVL 5,80M Diagnoses Myopericarditis I31.9
--- NOTE | 2025-08-15 09:46 | Electrocardiogram Report ---
Test Reason : Blood Pressure : */* mmHG Vent. Rate : 93 BPM Atrial Rate : 93 BPM P-R Int : 154 ms QRS Dur : 104 ms QT Int : 320 ms P-R-T Axes : 34 24 32 degrees QTcB Int : 397 ms Normal sinus rhythm Cannot rule out Anterior infarct Inferolateral injury pattern Abnormal ECG When compared with ECG of 12-Aug-2025 15:23, (unconfirmed) Inferior ST elevation is more pronounced Confirmed by Mahesh Webb ([id number]) on 08/15/2025 9:46:08 AM Referred By: REFERRED SELF Confirmed By: Mahesh Webb
[2025-08-15 09:48] LABS: Anion Gap 8.0 (3-11); Blood Urea Nitrogen 16.0 mg/dl (6-23); Calcium 9.4 mg/dl (8.6-10.3); Carbon Dioxide 26.0 mmol/L (21-32); Chloride 105.0 mmol/L (98-107); Creatinine Clr Calc Pharmacy 158.4 ml/min; Glucose 165.0 mg/dl (70-99(Fasting)); Potassium 4.3 mmol/L (3.5-5.1); Sodium 139.0 mmol/L (136-145)
--- NOTE | 2025-08-15 10:04 | Electrocardiogram Report ---
Test Reason : Blood Pressure : */* mmHG Vent. Rate : 77 BPM Atrial Rate : 77 BPM P-R Int : 172 ms QRS Dur : 108 ms QT Int : 356 ms P-R-T Axes : 44 28 39 degrees QTcB Int : 402 ms Normal sinus rhythm Anterior infarct (cited on or before 14-Aug-2025) Inferolateral injury pattern ACUTE GA / STEMI Abnormal ECG When compared with ECG of 14-Aug-2025 19:05, (unconfirmed) No significant change was found Confirmed by Mahesh Webb ([id number]) on 08/15/2025 10:03:58 AM Referred By: REFERRED SELF Confirmed By: Mahesh Webb
--- NOTE | 2025-08-15 14:00 | Hospitalist Progress Note ---
Date of Service August 15, 2025 Assessment & Plan (1) Pericarditis: Plan: Myopericarditis Presumed Lyme carditis Abnormal EKG due to above Troponin elevation likely due to myopericarditis --ECHO: Normal left ventricular wall thickness. No regional wall motion abnormalities noted. EF 50 to 55%. Right ventricle is normal in size and function. Evidence of previous mitral valve repair with annuloplasty ring. Mild mitral and tricuspid regurgitation. Mild thickening of the pericardium. No pericardial effusion. Findings not suggestive of constrictive pericarditis. Moderate left pleural effusion. --CXR:small left pleural effusion --ESR 20, CRP 16.5 --Continue colchicine 0.6 mg twice a day to be extended to complete 6-month course Continue ibuprofen, prednisone tapering course Continue doxycycline to complete 21 days therapy Appreciate cardiology input No vigorous exercise for 6 months per cardiology Needs outpatient cardiac MRI and follow-up with cardiology on discharge Nonischemic cardiomyopathy severe MR/mitral valve prolapse S/P surgery (2022) Mild TR ECHO as above Continue propranolol at reduced dose 10 mg twice a day, losartan Monitor volume status COPD No signs of acute exacerbation Continue home inhalers H/O Traumatic brain injury/neurocognitive disorder Lyme disease S/P treatment Past tobacco/alcohol abuse Continue aspirin 81 mg daily DVT Px: Lovenox SQ CODE STATUS Full code Disposition Home as able Admission and Anticipated Discharge Date Admission Date: August 14, 2025 Subjective Patient is seen and examined at bedside Chest pain resolved Patient admits to be compliant with medications Denies any dyspnea, nausea, vomiting, abdominal pain, dizziness Updated patient's family over the phone Review of Systems Review of Systems: All systems reviewed & are unremarkable except as noted in Subjective Physical Exam Physical Exam: Physical Exam: Vitals signs as noted above General Appearance:Overweight, no apparent distress Head: normocephalic, Atraumatic Eyes: normal inspection, EOMI Neck: supple, Trachea midline Respiratory/Chest: Normal breath sounds, CTA, No accessory muscle use Cardiovascular: S1, S2, no murmur Abdomen/GI:Soft, Non tender, Bowel sounds present Extremities/Musculoskeletal:normal inspection, no edema Neurologic/Psych:AAOX3, grossly no focal neurological deficits, chronic cognitive impairment Skin: normal color, warm Results & Data Results & Data Vital Signs (Past 12 Hours) Vital Signs Temp Pulse Pulse Resp BP Pulse Ox O2 Del Method 08/15/25 13:26 36.5 C 79 18 144/77 H 98 Room Air 08/15/25 08:40 36.5 C 86 18 141/70 H 98 Room Air 08/15/25 07:48 66 08/15/25 03:25 36.6 C 70 20 101/56 L 93 Room Air Laboratory Results Short CBC 08/14/25 08/15/25 Range/Units 19:05 05:48 WBC 14.01 H 10.51 (4.8-10.8) K/ul Hgb 15.0 14.6 (14.0-18.0) g/dL Hct 43.3 41.9 L (42.0-52.0) % Plt Count 207 201 (130-400) K/uL BMP 08/14/25 08/15/25 19:05 05:48 Sodium 138 139 Potassium 3.8 4.3 Chloride 103 105 Carbon Dioxide 29 26 BUN 20 16 Creatinine 1.26 0.92 D Glucose 97 165 H Calcium 9.2 9.4 Liver Function 08/14/25 Range/Units 19:05 Total Bilirubin 0.7 (0.2-1.0) mg/dl AST 15 (13-39) U/L ALT 14 (7-52) U/L Alkaline Phosphatase 55 (34-104) U/L Albumin 3.8 (3.4-5.0) gm/dl (1) Pericarditis Chronicity: chronic Pericarditis type: associated with other disease
--- NOTE | 2025-08-15 16:05 | Electrocardiogram Report ---
Test Reason : Blood Pressure : */* mmHG Vent. Rate : 72 BPM Atrial Rate : 72 BPM P-R Int : 192 ms QRS Dur : 122 ms QT Int : 382 ms P-R-T Axes : 35 45 37 degrees QTcB Int : 418 ms Normal sinus rhythm Anterior infarct (cited on or before 14-Aug-2025) Inferolateral injury pattern Abnormal ECG When compared with ECG of 14-Aug-2025 20:41, No significant change was found Confirmed by Mahesh Webb ([id number]) on 08/15/2025 4:05:06 PM Referred By: REFERRED SELF Confirmed By: Mahesh Webb
--- NOTE | 2025-08-15 18:27 | Communication Note ---
Date of Service: August 15, 2025 Stopping ibuprofen with plan to transition to prednisone plus colchicine. Repeat EKG in AM. Fabiola Graves DO
--- NOTE | 2025-08-16 07:13 | Cardiology Progress Note ---
Date of Service August 16, 2025 Assessment & Plan (1) Myopericarditis: Plan: Repeat echocardiogram performed today revealed pericardial thickening without pericardial effusion. Low normal LVEF , unchanged compared to recent baseline LVEF. High sensitive troponin elevated on presentation last evening which was a new finding compared to earlier this week. This has since trended down. EKG repeated 08/15/2025 at 10:02 AM revealing normal sinus rhythm at [address] segment elevation in inferior and high lateral leads, slightly more prominent than that which was noted last night and development of T wave inversions in the precordial leads , Consistent with mild pericarditis Repeat tracing performed 08/16/2025 at 6:25 AM and reviewed/interpreted independently: Normal sinus rhythm at 64 bpm, ST segment elevation in inferior leads is less prominent than the previous tracing, with no development of inferior T wave inversions, lateral T wave inversions. High-sensitivity troponin: Normal on 05/28/2025, 06/28/2025, and 08/12/2025. Elevated however on presentation on 08/14/2025, with trend of 496--> 355.8--> 73.9 PG per mL. No arrhythmias on telemetry. Patient states he feels great. Recommendations: He has already been on colchicine 0.6 mg twice daily since his initial diagnosis in May and is therefore already been on 3 months of therapy. This will need to be prolonged for another 3 months of therapy and will need another prescription. Discontinue ibuprofen which was ineffective when re-initiated on 08/12. At this time addition of corticosteroids recommended. Discussed with patient. Given clinical presentation, benefits felt to outweigh risks.. Prednisone 40 mg x 7 days , then 20 mg x 7 days, then 10 mg x 14 days, then 5 mg daily x 7 days, then stop. Continue protonix for GI prophylaxis. Complete 7 days of doxycycline to complete 21 days (already has prescription ) as only completed 14 days at time of treatment in July. Has cardiology follow up already scheduled for next week, 08/20/2025 9:30 AM [facility] ([facility]) with Dr Jodi Cabrera. No vigorous exercise for 6 months. Will plan on outpatient cardiac MRI . An order for a repeat BMP and CMRI has been placed in his [facility] Chart. I provided updates to the patient's mother by phone as per his request. I spent a total of 50 minutes on the date of service in preparation, delivery, and documentation of the care provided to this patient, excluding any time spent in the performance of separately billed services. Fabiola Graves DO Admission and Anticipated Discharge Date Admission Date: August 14, 2025 Subjective Patient seen in cardiology follow-up. He states he feels great. Denies any chest discomfort or residual shortness of breath. Telemetry reveals sinus rhythm in the 80s without arrhythmia. Review of Systems Review of Systems: All systems reviewed & are unremarkable except as noted in HPI & below Physical Exam Physical Exam: Temp Pulse Resp BP Pulse Ox O2 Del Method 36.7 C 65 18 127/74 96 Room Air 08/16/25 08:18 08/16/25 08:18 08/16/25 08:18 08/16/25 08:18 08/16/25 08:18 08/16/25 08:18 General: no acute distress and stated age Eyes: conjunctiva are pink and non-injected, sclera clear Neck: normal jugular venous pulse, no hepatojugular reflux Chest: normal shape and normal respiratory effort -well healed midline sternotomy incision Lungs: clear to auscultation and percussion Cardiac Exam: - regular heart sounds, no murmurs, rubs, or gallops, no jugular venous distention Abdomen: abdomen soft, non-tender, no abnormal masses and no hepatosplenomegaly Musculoskeletal: no gait disturbance, no weakness Extremities: no edema and no cyanosis Neuro:awake, conversant, follows commands, no focal motor deficits, Cognitive impairment consistent with history of traumatic brain injury Results & Data Vital Signs (Past 12 Hours) Vital Signs Temp Pulse Pulse Resp BP Pulse Ox O2 Del Method 08/16/25 04:26 36.5 C 58 L 16 131/76 97 Room Air 08/16/25 00:32 36.5 C 63 17 114/59 L 96 Room Air 08/15/25 21:58 66 08/15/25 20:22 36.5 C 64 17 125/76 96 Room Air Laboratory Results Cardiac Enzymes 08/15/25 Range/Units 05:48 Troponin I High Sens 73.9 H* D (0-20) pg/ml Comprehensive Metabolic Panel 08/15/25 Range/Units 05:48 Sodium 139 (136-145) mmol/L Potassium 4.3 (3.5-5.1) mmol/L Chloride 105 (98-107) mmol/L Carbon Dioxide 26 (21-32) mmol/L BUN 16 (6-23) mg/dl Creatinine 0.92 D (0.6-1.4) mg/dl Glucose 165 H (70-99(Fasting)) mg/dl Calcium 9.4 (8.6-10.3) mg/dl Intake and Output 08/15/25 08/16/25 08/16/25 22:59 06:59 14:59 Output Total 525 / 525 Balance -525 / 820 Output: Urine 525 / 525 Other: # Unmeasured Voids 1 Weight 123.1 kg PG Care Time/CCT Total # of Minutes Spent Total Time Spent with Patient: Total time spent is greater than 50% in coordination of care (as documented) at patient's floor/unit and/or counseling patient: Coding Level of Care Code 83995 SUB INP/OBS CARE 3/50MIN Diagnoses Myopericarditis I31.9
[2025-08-16 07:56] LABS: Hematocrit (blood only) 38.2 % (42.0-52.0); Hemoglobin 13.6 g/dL (14.0-18.0); Mean Corpuscular Hemoglobin 30.8 pg (25.0-34.0); Mean Corpuscular Volume 86.4 fL (80.0-100.0); Platelet Count 210 K/uL (130-400); RDW Standard Deviation 38.9 fL (36.4-46.3); Red Blood Count 4.42 M/uL (4.70-6.10); White Blood Count 15.36 K/ul (4.8-10.8)
[2025-08-16 08:15] LABS: Anion Gap 8.0 (3-11); Blood Urea Nitrogen 16.0 mg/dl (6-23); Calcium 9.2 mg/dl (8.6-10.3); Carbon Dioxide 27.0 mmol/L (21-32); Chloride 107.0 mmol/L (98-107); Creatinine Clr Calc Pharmacy 171.5 ml/min; Glucose 99.0 mg/dl (70-99(Fasting)); Potassium 3.7 mmol/L (3.5-5.1); Sodium 142.0 mmol/L (136-145)
[2025-08-16 08:19] VITALS: BP 127/74; PULSE 65; RESP 18; TEMP 98.1; O2SAT 96
--- NOTE | 2025-08-16 09:19 | Hospitalist Progress Note ---
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 No regional wall motion abnormalities noted. EF 50 to 55%. Right ventricle is normal in size and function. Evidence of previous mitral valve repair with annuloplasty ring. Mild mitral and tricuspid regurgitation. Mild thickening of the pericardium. No pericardial effusion. Findings not suggestive of constrictive pericarditis. Moderate left pleural effusion. --CXR:small left pleural effusion --ESR 20, CRP 16.5 --Continue colchicine 0.6 mg twice a day to be extended to complete 6-month course Ibuprofen discontinued as no improvement while on medication Continue prednisone tapering course Continue doxycycline to complete 21 days therapy Appreciate cardiology input No vigorous exercise for 6 months per cardiology Needs outpatient cardiac MRI and follow-up with cardiology on discharge Plan to be discharged home today Nonischemic cardiomyopathy severe MR/mitral valve prolapse S/P surgery (2022) Mild TR ECHO as above Continue propranolol at reduced dose 10 mg twice a day, losartan Monitor volume status COPD No signs of acute exacerbation Continue home inhalers H/O Traumatic brain injury/neurocognitive disorder Lyme disease S/P treatment Past tobacco/alcohol abuse Continue aspirin 81 mg daily DVT Px: Lovenox SQ CODE STATUS Full code Disposition Home Admission and Anticipated Discharge Date Admission Date: August 14, 2025 Subjective Patient is seen and examined at bedside No new complaints Denies any recurrence of chest pain Denies any dyspnea, nausea, vomiting, abdominal pain, dizziness Discussed with cardiology today Updated patient's family over the phone Plan to be discharged home today Review of Systems Review of Systems: All systems reviewed & are unremarkable except as noted in Subjective Physical Exam Physical Exam: Physical Exam: Vitals signs as noted above General Appearance:Overweight, no apparent distress Head: normocephalic, Atraumatic Eyes: normal inspection, EOMI Neck: supple, Trachea midline Respiratory/Chest: Normal breath sounds, CTA, No accessory muscle use Cardiovascular: S1, S2, no murmur Abdomen/GI:Soft, Non tender, Bowel sounds present Extremities/Musculoskeletal:normal inspection, no edema Neurologic/Psych:AAOX3, grossly no focal neurological deficits, chronic cognitive impairment Skin: normal color, warm Results & Data Results & Data Vital Signs (Past 12 Hours) Vital Signs Temp Pulse Pulse Resp BP Pulse Ox O2 Del Method 08/16/25 08:18 36.7 C 65 18 127/74 96 Room Air 08/16/25 07:10 61 08/16/25 04:26 36.5 C 58 L 16 131/76 97 Room Air 08/16/25 00:32 36.5 C 63 17 114/59 L 96 Room Air 08/15/25 21:58 66 Laboratory Results Short CBC 08/16/25 Range/Units 06:13 WBC 15.36 H (4.8-10.8) K/ul Hgb 13.6 L (14.0-18.0) g/dL Hct 38.2 L (42.0-52.0) % Plt Count 210 (130-400) K/uL [facility] 08/16/25 06:13 Sodium 142 Potassium 3.7 Chloride 107 Carbon Dioxide 27 BUN 16 Creatinine 0.85 Glucose 99 Calcium 9.2 (1) Pericarditis Chronicity: chronic Pericarditis type: associated with other disease
--- NOTE | 2025-08-16 12:41 | Discharge Summary ---
Date of Service August 16, 2025 Admission HPI Per Admitting Provider History obtained from patient and records. Medical history significant for nonischemic cardiomyopathy (EF 55-59%, TTE 2024), severe MR/mitral valve prolapse status post surgery (2022), mild TR, pericardial effusion, COPD, history of traumatic brain injury, neurocognitive disorder, mood disorder, Lyme disease status post Rx, past tobacco/alcohol abuse. 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 Patient discharged on ibuprofen tapering course, colchicine, and doxycycline. Outpatient TTE last August 04 was negative for residual pericardial fluid. Last week, patient had recurrent pleuritic left-sided chest pain reminiscent of pericarditis attack. No cough or SOB. Patient still on colchicine Rx. Patient consulted ER 2 days ago for evaluation. CT chest showed increased pericardial fluid Patient evaluated by [facility] fuel distribution system operator at the ER. Toradol and Solu-Medrol administered at the ER. Patient discharged on 1 week course of doxycycline and ibuprofen taper. Patient instructed to continue colchicine course. Additional prescription given for Protonix daily. Limited outpatient echo contemplated by end of the week/next week as per Cardiology note. Patient returned to ER today because of persistent left-sided chest pain. IV Toradol and Solu-Medrol administered at the ER. Medical History as above Surgical History : IVC filter placement, mitral valve surgery, tonsillectomy/adenoidectomy, PEG tube placement Family History : Migraine Personal/Social history : Past tobacco/alcohol abuse, delivery work Admission Exam Per Admitting Provider GENERAL: Comfortable, obese, pleasant, no respiratory distress SKIN: Normal color, warm HEENT: [place] palpebral conjunctivae, no ptosis, moist buccal mucosa NECK : Supple, no tenderness CHEST : CTA, left chest wall tenderness HEART : RRR, no obvious murmurs ABDOMEN: Some distention, nontender EXTREMITIES : No LE swelling/tenderness, palpable pulses, no other conspicuous deformities noted NEUROLOGIC : Coherent, no facial asymmetry, no other gross focality Principal Diagnosis Myopericarditis Discharge Data Allergies Allergy/AdvReac Type Severity Reaction Status Date / Time No Known Allergies Allergy Unknown ` Verified 08/14/25 20:59 Consultations 08/14/25 23:00 Consult Cardiology Routine Procedures Performed Laboratory Results WBC 15.36 K/ul (4.8-10.8) H 08/16/25 06:13 RBC 4.42 M/uL (4.70-6.10) L 08/16/25 06:13 Hgb 13.6 g/dL (14.0-18.0) L 08/16/25 06:13 Hct 38.2 % (42.0-52.0) L 08/16/25 06:13 MCV 86.4 fL (80.0-100.0) 08/16/25 06:13 MCH 30.8 pg (25.0-34.0) 08/16/25 06:13 MCHC 35.6 g/dL (32.0-36.0) 08/16/25 06:13 RDW Std Deviation 38.9 fL (36.4-46.3) 08/16/25 06:13 RDW Coeff of Jovan 12.1 % (11.5-14.5) 08/16/25 06:13 Plt Count 210 K/uL (130-400) 08/16/25 06:13 MPV 11.8 fL (9.4-12.4) 08/16/25 06:13 Immature Gran % (Auto) 0.4 % 08/15/25 05:48 Neut % (Auto) 90.4 % 08/15/25 05:48 Lymph % (Auto) 6.6 % 08/15/25 05:48 [place] % (Auto) 2.5 % 08/15/25 05:48 Eos % (Auto) 0.0 % 08/15/25 05:48 Baso % (Auto) 0.1 % 08/15/25 05:48 Neut # (Auto) 9.51 K/uL (1.40-6.50) H 08/15/25 05:48 Lymph # (Auto) 0.69 K/uL (1.20-3.40) L 08/15/25 05:48 [place] # (Auto) 0.26 K/uL (0.11-0.59) 08/15/25 05:48 Eos # (Auto) 0.00 K/uL (0.00-0.50) 08/15/25 05:48 Baso # (Auto) 0.01 K/uL (0.00-0.20) 08/15/25 05:48 Immature Gran # (Auto) 0.04 K/uL (0.01-0.20) 08/15/25 05:48 RBC Morphology Unremarkable 08/15/25 05:48 ESR 20 mm/hr (0-15) H 08/14/25 19:05 PT 11.1 Seconds (9.0-12.0) 08/14/25 19:05 INR 1.1 (0.9-1.1) 08/14/25 19:05 APTT 27 Seconds (21-31) 08/14/25 19:05 PTT Ratio 1.0 08/14/25 19:05 Sodium 142 mmol/L (136-145) 08/16/25 06:13 Potassium 3.7 mmol/L (3.5-5.1) 08/16/25 06:13 Chloride 107 mmol/L (98-107) 08/16/25 06:13 Carbon Dioxide 27 mmol/L (21-32) 08/16/25 06:13 Anion Gap 8 (3-11) 08/16/25 06:13 BUN 16 mg/dl (6-23) 08/16/25 06:13 Creatinine 0.85 mg/dl (0.6-1.4) 08/16/25 06:13 Est Cr Clr Drug Dosing 171.5 ml/min 08/16/25 06:13 eGFR 118.40 08/16/25 06:13 BUN/Creatinine Ratio 18.8 (10-20) 08/16/25 06:13 Glucose 99 mg/dl (70-99(Fasting)) 08/16/25 06:13 Calcium 9.2 mg/dl (8.6-10.3) 08/16/25 06:13 Total Bilirubin 0.7 mg/dl (0.2-1.0) 08/14/25 19:05 AST 15 U/L (13-39) 08/14/25 19:05 ALT 14 U/L (7-52) 08/14/25 19:05 Alkaline Phosphatase 55 U/L (34-104) 08/14/25 19:05 Troponin I High Sens 73.9 pg/ml (0-20) H* D 08/15/25 05:48 C-Reactive Protein 16.50 mg/dl (0-0.5) H 08/14/25 19:05 Total Protein 7.5 gm/dl (6.0-8.3) 08/14/25 19:05 Albumin 3.8 gm/dl (3.4-5.0) 08/14/25 19:05 Globulin 3.7 gm/dl (2.5-4.0) 08/14/25 19:05 Albumin/Globulin Ratio 1.0 (0.9-2) 08/14/25 19:05 Impressions Chest X-Ray 08/14/25 19:00 Chest radiograph, one view History: Chest pain Comparison: 08/12/2025 Findings: Single AP view of the chest performed. No pneumothorax. Enlargement of the cardiac silhouette, likely related to previously seen pericardial effusion. Small left pleural effusion. Median sternotomy wires. Normal pulmonary vascularity. No evidence for lymphadenopathy. No visualized bony or soft tissue abnormality. 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 No regional wall motion abnormalities noted. EF 50 to 55%. Right ventricle is normal in size and function. Evidence of previous mitral valve repair with annuloplasty ring. Mild mitral and tricuspid regurgitation. Mild thickening of the pericardium. No pericardial effusion. Findings not suggestive of constrictive pericarditis. Moderate left pleural effusion. --CXR:small left pleural effusion --ESR 20, CRP 16.5 --Continue colchicine 0.6 mg twice a day to be extended to complete 6-month course Ibuprofen discontinued as no improvement while on medication Continue prednisone tapering course Continue doxycycline to complete 21 days therapy Appreciate cardiology input No vigorous exercise for 6 months per cardiology Needs outpatient cardiac MRI and follow-up with cardiology on discharge Plan to be discharged home today Nonischemic cardiomyopathy severe MR/mitral valve prolapse S/P surgery (2022) Mild TR ECHO as above Continue propranolol at reduced dose 10 mg twice a day, losartan Monitor volume status COPD No signs of acute exacerbation Continue home inhalers H/O Traumatic brain injury/neurocognitive disorder Lyme disease S/P treatment Past tobacco/alcohol abuse Continue aspirin 81 mg daily DVT Px: Lovenox SQ CODE STATUS Full code Disposition Home Total Time Total Time Spent Total Time Spent (In Minutes): 49 minutes Discharge Plan Discharge Items Patient Disposition: Home - Self-Care Reason For Visit: RECURRENT PERICARDITIS Discharge Diagnosis: Myopericarditis Lyme carditis Activity: As commented below Activity Comment: No vigorous activity recommended for at least 6 months Non-emergency contact: Primary Care Provider and Certified Nurse Aide Call non-emergency contact if: you have any medication questions, your symptoms worsen, your pain is concerning for you and you have a fever Follow-up/Referrals: Odin Cabrera DO [Certified Nurse Aide] - 08/20/25 9:30 am Sudhakar Ortiz MD [Primary Care Provider] - (Date & Time 08/21/2025 2:00 PM Provider: Sudhakar Ortiz MD [facility] ) Diet: Regular Addtl Attending Provider Instructions: -- Follow-up with your primary care physician in 1 week -- Follow-up with your fuel distribution system operator Dr. Graves for outpatient cardiac MRI and further management of myopericarditis. Office will call you with appointment. --Continue colchicine 0.6 mg twice a day as recommended by cardiology --Complete doxycycline course to complete 21 days of treatment as previously prescribed -- Continue prednisone tapering course:Prednisone 40 mg x 7 days , then 20 mg x 7 days, then 10 mg x 14 days, then 5 mg daily x 7 days, then stop. Cardiology follow up visit: 08/20/2025 9:30 AM [facility] ([facility]) with Dr Jodi Cabrera. Seek immediate medical attention if your symptoms reoccur or worsen Please review medication list provided on discharge for any medication changes as instructed. Please call if you have any questions or problems. You can reach a [facility] hospitalist on duty at [facility] 24 hours a day by calling [phone] Pending Studies at Discharge: No Stand-Alone Forms: My [facility], Smoking Cessation Medications and DC Order Prescriptions: New prednisone 10 mg tablet 10 mg PO DIRECTED Qty: 56 0RF Rx Instructions: Take Prednisone 40 mg x 7 days , then 20 mg x 7 days, then 10 mg x 14 days, then 5 mg daily x 7 days, then stop. prednisone 5 mg tablet 5 mg PO DIRECTED Qty: 7 0RF Rx Instructions: Take Prednisone 40 mg x 7 days , then 20 mg x 7 days, then 10 mg x 14 days, then 5 mg daily x 7 days, then stop. Continued Fresh Cap 1 tab PO DAILY pantoprazole 40 mg tablet,delayed release (DR/EC) 40 mg PO QAM Qty: 30 1RF colchicine 0.6 mg tablet 0.6 mg PO BID Qty: 60 2RF doxycycline hyclate 100 mg capsule 100 mg PO BID Qty: 14 0RF Rx Instructions: STARTED 08/12/25 FOR 7 DAYS aspirin 81 mg tablet,chewable 81 mg PO QAM montelukast 10 mg tablet 10 mg PO QAM losartan 25 mg tablet 25 mg PO QAM fexofenadine 60 mg tablet 60 mg PO QAM propranolol 10 mg Tablet 10 mg PO BID Qty: 60 2RF Discontinued ibuprofen 200 mg Tablet 0 mg PO TID Rx Instructions: STARTED 08/13/25--TAKE 800 MG TID X 3 DAYS, THEN 600 MG TID X 3 DAYS, THEN 400 MG TID X 3 DAYS, THEN 200 MG BID X 3 DAYS, THEN STOP. Discharge Orders: Discharge Order (Routine); Ordered 08/16/25 Ordered By: Dada Calero Admission Data Admit Date/Time: 08/14/25 21:55 Attending Provider: Dada Calero Admit Provider: Lucio Elmore Primary Care Provider: Sudhakar Ortiz Other Providers: Chago Graves Other Interventions: Discharge Summary Assessment (RN) Last Done: 08/16/25 09:24
--- NOTE | 2025-08-18 05:51 | Electrocardiogram Report ---
Test Reason : Blood Pressure : */* mmHG Vent. Rate : 64 BPM Atrial Rate : 64 BPM P-R Int : 168 ms QRS Dur : 118 ms QT Int : 386 ms P-R-T Axes : 56 47 -50 degrees QTcB Int : 398 ms Normal sinus rhythm Non-specific intra-ventricular conduction delay Diffuse ST elevation, consider pericarditis, early repolarization, or injury Abnormal ECG When compared with ECG of 15-Aug-2025 10:02, Non-specific change in ST segment in Anterior leads T wave inversion now evident in Inferior leads T wave inversion less evident in Anterior leads Confirmed by Rufino Moe ([id number]) on 08/18/2025 5:50:40 AM Referred By: REFERRED SELF Confirmed By: Rufino Moe
== END 2025-08-16 10:00 | disposition home or self-care (01) | DRG 868 ==
LOC: ED 18:51 → 2E 21:55